=== PATIENT | female | born 1965 | race Caucasian/White ===

== ENCOUNTER 2018-09-03 19:13 | Emergency (ER) | payer OTHER ==
--- OUTSIDE RECORDS SUMMARY | 2018-09-03 19:23 | XMS REPORT | Continuity of Care Document ---
:1965 External Reference #:[id number] Author Name Jackeline Smith O.D. Address [address] [place] [address] Care Team Providers Name Role Phone Stalin Mark M.D. Primary Care Physician Unavailable Payers Type Date Identification Numbers Payment Provider Subscriber Policy Number: [id number] [employer] Radha Benitez PayID: [id number] [address] [place] [address] Advance Directives Description No Information Available Problems Date Description Provider Status Onset: 08/21/2018 Hypermetropia Jackeline Smith O.D. Active Onset: 08/21/2018 Presbyopia Jackeline Smith O.D. Active Family History Date Family Member(s) Problem(s) Comments Father No Current Problems Mother Cataract Social History Type Date Description Comments Sex Unknown Marital Status Single Occupation Tailor Work Status Full-Time Employment ETOH Use Occasionally consumes alcohol Tobacco Use Start: Unknown Patient has never smoked Smoking Status Reviewed: 08/21/18 Patient has never smoked Allergies, Adverse Reactions, Alerts Date Description Reaction Status Severity Comments 08/21/2018 Penicillin Active 08/21/2018 "Anesthesia" Active Medications Medication Date Status Form Strength Qnty SIG Indications Ordering Provider Multi Vitamin Active Tablets Unknown Daily Immunizations Description No Information Available Vital Signs Description No Information Available Results Description No Information Available Procedures Date Code Description Status 08/21/2018 01917 New Patient Comprehensive Exam Completed 08/21/2018 102 Level 2 Fit RGP/Soft Toric/Bifocal/Monovision/Extended Completed Wear Encounters Description No Information Available Plan of Treatment Future Appointment(s):08/28/2018 8:15 am - Jackeline Smith O.D. at [facility]
--- OUTSIDE RECORDS SUMMARY | 2018-09-03 19:23 | XMS REPORT | Continuity of Care Document ---
:1965 External Reference #:[id number] Author Name Jackeline Smith O.D. Address [address] [place] [address] Care Team Providers Name Role Phone Stalin Mark M.D. Primary Care Physician Unavailable Payers Type Date Identification Numbers Payment Provider Subscriber Policy Number: [id number] [employer] Radha Benitez PayID: [id number] [address] [place] [address] Advance Directives Description No Information Available Problems [...] Available Procedures Date Code Description Status 08/21/2018 50343 New Patient Comprehensive Exam Completed 08/21/2018 102 Level 2 Fit RGP/Soft Toric/Bifocal/Monovision/Extended Completed Wear Encounters Description No Information Available Plan of Treatment 08/21/2018 - Jackeline Smith O.D.H52.03 Hypermetropia, bilateralComments:You have Hyperopia, or far sightedness, I have given you a prescription for glasses.Follow up:1 WEEK CL LIKUNH98.4 PresbyopiaComments:Smoking can increase the risk of developing or worsening any eye related disease, as well as affect your overall health. If you are a smoker, we strongly recommend that you quit.If you are not a smoker, we strongly recommend that you do not start. You have presbyopia. This is when the lens in your eye loses the ability to change focus, and happens as we age. A pair of reading glasses will help you see up close.
--- OUTSIDE RECORDS SUMMARY | 2018-09-03 19:23 | XMS REPORT | Continuity of Care Document ---
:1965 External Reference #:[id number] Author Name Jackeline Smith O.D. Address [address] [facility] [facility] [place] [address] Care Team Providers Name Role Phone Stalin Mark M.D. Primary Care Physician Unavailable Payers Type Date Identification Numbers Payment Provider Subscriber Policy Number: [id number] Smith Benitez PayID: [id number] [address] [place] [address] Advance Directives Description No Information Available Problems [...] Available Results Description No Information Available Procedures Description No Information Available Encounters Description No Information Available Plan of Treatment Future Appointment(s):08/28/2018 8:15 am - Jackeline Smith O.D. at [facility]08/21/2018 - Jackeline Smith O.D.H52.03 Hypermetropia, bilateralComments:You have Hyperopia, or far sightedness, I have given you a prescription for glasses.Follow up:1 WEEK CL GVHJAP77.4 PresbyopiaComments: Smoking can increase the risk of developing or worsening any eye related disease , as well as affect your overall health. [...]
[2018-09-03 19:31] VITALS: BP 138/76
--- NOTE | 2018-09-03 19:49 | UC ---
Complaint Female HPI - HPI Summary HPI Summary: 53 year old woman here with a complaint of dysuria. She also has urgency and frequency. It's been going on for about 3 days and is getting worse. She has been taking Azo which does help with the symptoms. She's got some lower anterior midline abdominal discomfort that comes and goes. No flank pain no fevers or chills. No abnormal vaginal discharge OR concern of STI. Bowels been normal. - History Of Current Complaint Chief Complaint: UCGU Stated Complaint: URINARY COMPLAINT Time Seen by Provider: 09/03/18 19:28 Hx Last Menstrual Period: 08/31/18 Pain Intensity: 8 - Allergies/Home Medications Allergies/Adverse Reactions: Allergies Allergy/AdvReac Type Severity Reaction Status Date / Time Penicillins Allergy See Comment Verified 09/03/18 19:25 PMH/Surg Hx/FS Hx/Imm Hx Previously Healthy: Yes - Surgical History Surgical History: Yes Surgery Procedure, Year, and Place: 1990,1993, x , [place]. 2013 CYSTOSCOPY WITH LITHOTRIPSY AND RIGHT STENT INSERTION, [facility] [place] - Family History Known Family History: Positive: Cardiac Disease - Social History Alcohol Use: Occasionally Substance Use Type: None Smoking Status (MU): Former Smoker When Did the Patient Quit Smoking/Using Tobacco: 1993 - ABOUT 20 YEARS AGO - Immunization History Most Recent Tetanus Shot: UTD Review of Systems Constitutional: Negative Skin: Negative Eyes: Negative ENT: Negative Respiratory: Negative Cardiovascular: Negative Gastrointestinal: Other - SEE HPI Genitourinary: Dysuria, Frequency, Urgency Motor: Negative Neurovascular: Negative Musculoskeletal: Negative Neurological: Negative Psychological: Negative Is Patient Immunocompromised?: No All Other Systems Reviewed And Are Negative: Yes Physical Exam Triage Information Reviewed: Yes Appearance: Well-Appearing, No Pain Distress, Well-Nourished Vital Signs: Initial Vital Signs Temp 99.2 F 09/03/18 19:27 Pulse 86 09/03/18 19:27 Resp 17 09/03/18 19:27 BP 138/76 09/03/18 19:27 Pulse Ox 100 09/03/18 19:27 Vital Signs Reviewed: Yes Eye Exam: Normal Eyes: Positive: Conjunctiva Clear Neck exam: Normal Neck: Positive: Supple Respiratory: Positive: No respiratory distress Abdomen Description: Positive: Nontender, No Organomegaly, Soft. Negative: CVA Tenderness (R), CVA Tenderness (L) Bowel Sounds: Positive: Present Musculoskeletal Exam: Normal Musculoskeletal: Positive: Strength Intact, ROM Intact Neurological Exam: Normal Neurological: Positive: Alert, Muscle Tone Normal Psychological Exam: Normal Psychological: Positive: Age Appropriate Behavior Skin Exam: Normal Complaint Female Dx - Differential Dx/Diagnosis Provider Diagnoses: UTI Discharge - Sign-Out/Discharge Documenting (check all that apply): Patient Departure All imaging exams completed and their final reports reviewed: No Studies - Discharge Plan Condition: Stable Disposition: HOME Prescriptions: Sulfamethox/Trimethoprim DS* [Bactrim DS 800/160 TAB*] 1 tab PO BID #14 tab Patient Education Materials: Urinary Tract Infection in Women (ED) Referrals: Stalin Mark MD [Primary Care Provider] - Additional Instructions: FOLLOW UP WITH YOUR DOCTOR IF NOT COMPLETELY IMPROVED. GET RECHECKED FOR ANY WORSENING OF YOUR CONDITION OR QUESTIONS OR CONCERNS. - Billing Disposition and Condition Condition: STABLE Disposition: Home
== END 2018-09-03 19:54 | disposition home or self-care (01) ==
LOC: UCCORT 19:13
DX: N39.0 Urinary tract infection, site not specified (principal); Z88.0 Allergy status to penicillin; Z87.891 Personal history of nicotine dependence
CPT/HCPCS: 81003; 87077; 87086; 87186; 99212; G0463

== ENCOUNTER 2019-09-26 10:34 | Inpatient (IN) | payer BC, OTHER ==
--- NOTE | 2019-09-16 13:14 | HP ---
HISTORY AND PHYSICAL: DATE OF SURGERY: 09/26/19 DATE OF OFFICE VISIT: 09/15/19 SURGEON: Chey Tompkins MD.* (DICTATED BY SURAJ DELGADO) PROCEDURE: Revision left total knee arthroplasty, patellar component. CHIEF COMPLAINT: Left knee pain. HISTORY OF PRESENT ILLNESS: Ms. Benitez is a 54-year-old female who underwent a left total knee arthroplasty. She continues to have pain and has elected to proceed with a revision of the left total knee arthroplasty. PAST MEDICAL HISTORY: Denies. PAST SURGICAL HISTORY: 1. Bilateral total knee arthroscopy. 2. Kidney stone removal. 3. x2. 4. Tonsillectomy. CURRENT MEDICATIONS: None. ALLERGIES: To PENICILLIN. FAMILY HISTORY: Coronary artery disease. SOCIAL HISTORY: She is a 54-year-old female. She does not smoke or use drugs, use occasional alcohol. REVIEW OF SYSTEMS: A complete 14-point review of systems reviewed with the patient was all negative and noncontributory. She denies history of DVT, PE, hepatitis, HIV or anesthesia problems. PHYSICAL EXAMINATION GENERAL: She is well developed, well nourished, in no acute distress. VITAL SIGNS: She stands 63 inches tall, weighs 150 pounds. Her blood pressure is 118/80, her heart rate is 100. HEENT: Normocephalic, atraumatic. NECK: Supple. No palpable lymph nodes. PULMONARY: The lungs are clear to auscultation bilaterally. CARDIO: Regular rate and rhythm. Strong S1, S2. ABDOMEN: Soft, nontender, nondistended. NEUROLOGICAL: She is alert and oriented x3. MUSCULOSKELETAL: Left lower extremity skin is intact. There are no open wounds or abrasions. There is a healed midline incision. There is a mild effusion of the left knee. Range of motion is 10 to 125 degrees of flexion. She has a 10-degree lag, but can passively extend to 0 degrees. She has a 2+ dorsalis pedis pulse. She is able to dorsiflex and plantarflex. Intact sensation. ASSESSMENT AND PLAN: Ms. Benitez is a 54-year-old female with complaints of left knee pain. She has elected to proceed with revision of a left total knee arthroplasty, patellar component. The surgery is scheduled for 09/26/[address] Tompkins after I discussed the risks and benefits of the surgery at today's visit and all of her questions were answered. She will follow up with Dr. Tompkins 2 weeks after the surgery. SURAJ DELGADO [id number]/CPS #: [id number] MTDD
[~2019-09-26 10:34] MED LIST: Buffered Lidocaine 1% SYRIN* 1 ML/SYRINGE INTRADERM ONE; Famotidine IV* 10 MG/ML 2 ML (20 mg) IV ONE; Scopolamine 1.5 mg* PATCH TRANSDERM ONE; Tranexamic Acid 1,000 MG in NS 0.9% 50 ML* (outpatient use) IV SCH
--- OUTSIDE RECORDS SUMMARY | 2019-09-26 13:02 | XMS REPORT | Continuity of Care Document ---
:1965 External Reference #:[id number] Author Name Sharlene Mclaughlin MD, PHD (transmitted by agent of provider Melissa Merino) Address [address] [facility], [address] [place] [address] Care Team Providers Name Role Phone Sharlene Mclaughlin MD, PHD - Family Care Team Information Dependency Counselor [phone] Medicine Problems Active Problems Provider Date Localized, primary osteoarthritis Veronica Rivas PA Onset: 01/01/2018 Female climacteric state Sharlene Mclaughlin MD, PHD Onset: 12/09/2018 Rheumatoid arthritis Sharlene Mclaughlin MD, PHD Onset: 09/05/2019 Social History Type Date Description Comments Sex Unknown Tobacco Use Start: Unknown Never Smoked Cigarettes ETOH Use Currently consumes alcohol socially ETOH Use Drinks 6 Alcoholic Beverages Per Week Tobacco Use Start: Unknown Patient has never smoked Smoking Status Reviewed: 09/05/19 Patient has never smoked Allergies, Adverse Reactions, Alerts Active Allergies Reaction Severity Comments Date Anesthesia vomiting vomiting 10/27/2016 Penicillin Nausea 12/09/2018 Medications Active Medications SIG Qnty Indications Ordering Provider Date Multi Adult Gummies 2 by mouth every Unknown day Chewtabs History Medications Methotrexate take 5 tablets by 30tabs M06.9 Sharlene Mclaughlin, 09/05/2019 - 2.5mg mouth weekly as MD, PHD 09/05/2019 Tablets directed Medications Administered in Office Medication SIG Qnty Indications Ordering Provider Date Methylprednisolone acetate Jaimee Ellis, 06/29/2017 (Depomedrol) 80mg injection RPAC Injection Methylprednisolone acetate Jaimee Ellis, 10/27/2016 (Depomedrol) 80mg injection RPAC Injection Immunizations CPT Code Status Date Vaccine Lot # [id number] Refused 09/05/2019 Influenza Virus Vaccine, Quadrivalent, 36 Mos+, .5ML Vital Signs Date Vital Result Comment 09/05/2019 9:08am BP Systolic 117 mmHg BP Diastolic 75 mmHg Body Temperature 98.2 F Heart Rate 76 /min Respiratory Rate 18 /min Height 63 inches 5'3" Weight 150.00 lb BMI (Body Mass Index) 26.6 kg/m2 BSA (Body Surface Area) 1.71 m2 [place] body weight in kilograms 52 kg O2 % BldC Oximetry 98 % 12/09/2018 10:09am BP Systolic 97 mmHg BP Diastolic 64 mmHg Body Temperature 98.4 F Heart Rate 83 /min Respiratory Rate 16 /min Height 63 inches 5'3" Weight 164.00 lb BMI (Body Mass Index) 29.0 kg/m2 BSA (Body Surface Area) 1.78 m2 [place] body weight in kilograms 52 kg O2 % BldC Oximetry 98 % Results Description No Information Available Procedures Description No Information Available Medical Devices Description No Information Available Encounters Type Date Location Provider Dx Diagnosis Office Visit 09/05/2019 Family Medicine Sharlene Mclaughlin, Z01.818 Encounter for other 9:00a Jason Hua MD, PHD preprocedural examination M17.0 Bilateral primary osteoarthritis of knee M25.562 Pain in left knee M19.90 Unspecified osteoarthritis, unspecified site N95.1 Menopausal and female climacteric states M06.9 Rheumatoid arthritis, unspecified Assessments Date Code Description Provider 09/05/2019 Z01.818 Encounter for other preprocedural Sharlene Mclaughlin MD, PHD examination 09/05/2019 M17.0 Bilateral primary osteoarthritis of knee Sharlene Mclaughlin MD, PHD 09/05/2019 M25.562 Pain in left knee Sharlene Mclaughlin MD, PHD 09/05/2019 M19.90 Unspecified osteoarthritis, unspecified Sharlene Mclaughlin MD, PHD site 09/05/2019 N95.1 Menopausal and female climacteric states Sharlene Mclaughlin MD, PHD 09/05/2019 M06.9 Rheumatoid arthritis, unspecified Sharlene Mclaughlin MD, PHD Plan of Treatment 09/05/2019 - Sharlene Mclaughlin MD, PHDZ01.818 Encounter for other preprocedural examinationNew Labs:Protime, Ordered: 09/05/19M17.0 Bilateral primary osteoarthritis of kneeNew Labs:Vitamin D,25-Hydroxy, Ordered: 09/05/19CBC W/ Automated Diff, Ordered: 09/05/19Comprehensive Metabolic Panel, Ordered: M25.562 Pain in left kneeM19.90 Unspecified osteoarthritis, unspecified siteNew Labs:Lyme Igm (Reflex Western Blot), Ordered: 09/05/19N95.1 Menopausal and female climacteric statesComments:Discussed Gabapentin at bedtime for sleep and sweats. Anti-depressants are an option if needed. Would avoid any hormone replacement at this time due to risk of blood clot.M06.9 Rheumatoid arthritis, unspecifiedNew Medication:Methotrexate 2.5 mg - take 5 tablets by mouth weekly as directedNew Labs:CCP Igg/Iga Antibodies, Ordered: 09/05/19Rheumatoid Factor Screen, Ordered: 09/05/19Sedimentation Rate, Ordered: 09/05/19C-Reactive Protein ,Quant, Ordered: 09/05/19Comments:Rheumatoid arthritis is a destructive auto- immune attack on your joints that can flare and make things worse after exercise , injury, or surgery if we don't have it under control. Doing blood work to check before starting the methotrexate. Functional Status Functional Condition Comment Date Status Independent with all ADL's Active Mental Status Description No Information Available Referrals Description No Information Available
--- OUTSIDE RECORDS SUMMARY | 2019-09-26 13:02 | XMS REPORT | Continuity of Care Document ---
:1965 External Reference #:[id number] Author Name Chey Tompkins M.D. (transmitted by agent of provider Jocelin Lambert) Address [address] [place] [address] [place] [address] Care Team Providers Name Role Phone Megan Bae MD - Family Care Team Information Marketing Database Analyst [phone] Medicine Sharlene Mclaughlin M.D. - Family Care Team Information Marketing Database Analyst Medicine Problems Active Problems Provider Date Arthroplasty of knee Chey Tompkins M.D. Onset: 07/09/2019 Social History Type Date Description Comments Sex Unknown ETOH Use Occasionally consumes alcohol Tobacco Use Start: Unknown Light tobacco smoker (10 or fewer cigarettes/day) Smoking Status Reviewed: 08/06/19 Light tobacco smoker (10 or fewer cigarettes/day) Exercise Type/Frequency Exercises sporadically Allergies, Adverse Reactions, Alerts Active Allergies Reaction Severity Comments Date Anesthesia 11/29/2018 Penicillin 11/29/2018 Medications Active Medications SIG Qnty Indications Ordering Provider Date [place] Unknown Ibuprofen Unknown Medications Administered in Office Medication SIG Qnty Indications Ordering Provider Date Depomedrol 40MG Chey Tompkins M.D. 07/16/2019 Injection Immunizations Description No Information Available Vital Signs Date Vital Result Comment 08/06/2019 8:28am Height 63.75 inches 5'3.75" Weight 150.00 lb Heart Rate 100 /min BP Systolic 118 mmHg BP Diastolic 80 mmHg Body Temperature 98.7 F Pain Level 6 BMI (Body Mass Index) 25.9 kg/m2 07/16/2019 11:35am Height 63.75 inches 5'3.75" Weight 150.00 lb BP Systolic 120 mmHg BP Diastolic 73 mmHg Respiratory Rate 14 /min Body Temperature 98.1 F Pain Level 3 BMI (Body Mass Index) 25.9 kg/m2 Results Test Date Facility Test Result H/L Range Note Xray 07/16/2019 [facility] Inj/Aspir Major JT Or Bursa W/ <pending> US Procedures Date Code Description Status 07/16/2019 32827 Inj/Aspir Major JT Or Bursa W/ US Completed 03/13/2018 [id number] Mammogram Completed 06/13/2016 83731103 Colonoscopy Completed Medical Devices Description No Information Available Encounters Type Date Location Provider Dx Diagnosis Office Visit 07/09/2019 [facility] Chey Tompkins, M25.562 Pain in left knee 9:[facility] M25.561 Pain in right knee M25.462 Effusion, left knee M25.552 Pain in left hip Z96.651 Presence of right artificial knee joint Z96.652 Presence of left artificial knee joint M25.461 Effusion, right knee Assessments Date Code Description Provider 08/06/2019 M25.562 Pain in left knee Cheypratibha Tompkins M.D. 08/06/2019 M25.462 Effusion, left knee Chey Tompkins M.D. 08/06/2019 Z96.652 Presence of left artificial knee joint Chey Tompkins M.D. 08/06/2019 R53.1 Weakness Chey Tompkins M.D. 07/16/2019 M25.562 Pain in left knee Chey Tompkins M.D. 07/16/2019 M25.561 Pain in right knee Chey Tompkins M.D. 07/16/2019 M25.462 Effusion, left knee Chey Tompkins M.D. 07/16/2019 M25.552 Pain in left hip Chey Tompkins M.D. 07/16/2019 Z96.651 Presence of right artificial knee joint Chey Tompkins M.D. 07/16/2019 Z96.652 Presence of left artificial knee joint Chey Tompkins M.D. 07/16/2019 M25.461 Effusion, right knee Chey Tompkins M.D. 07/16/2019 M16.12 Unilateral primary osteoarthritis, left hip Chey Tompkins M.D. 07/09/2019 M25.562 Pain in left knee Chey Tompkins M.D. 07/09/2019 M25.561 Pain in right knee Chey Tompkins M.D. 07/09/2019 M25.462 Effusion, left knee Chey Tompkins M.D. 07/09/2019 M25.552 Pain in left hip Chey Tompkins M.D. 07/09/2019 Z96.651 Presence of right artificial knee joint Chey Tompkins M.D. 07/09/2019 Z96.652 Presence of left artificial knee joint Chey Tompkins M.D. 07/09/2019 M25.461 Effusion, right knee Chey Tompkins M.D. Plan of Treatment Future Appointment(s):09/15/2019 1:00 [facility] - Chey Tompkins M.D.M25.562 Pain in left kneeFollow up:Follow up: 7-10 days before kxxujntC09.462 Effusion, left kneeZ96.652 Presence of left artificial knee rjbjtO76.1 Weakness Functional Status Description No Information Available Mental Status Description No Information Available Referrals Description No Information Available
--- OUTSIDE RECORDS SUMMARY | 2019-09-26 13:02 | XMS REPORT | Continuity of Care Document ---
:1965 External Reference #:[id number] Author Name Sharlene Mclaughlin MD, PHD Address [address] [facility] [address] [place] [address] Care Team Providers Name Role Phone Sharlene Mclaughlin MD, PHD - Family Care Team Information Body And Frame Man Medicine Problems Active Problems Provider Date Localized, [...] Mclaughlin, 09/05/2019 - 2.5mg mouth weekly as , PHD 09/05/2019 Tablets directed Medications Administered in Office Medication SIG Qnty Indications Ordering Provider Date Methylprednisolone acetate Jaimee Ellis, 06/29/2017 (Depomedrol) 80mg injection RPAC Injection Methylprednisolone acetate Jaimee Ellis, 10/27/2016 (Depomedrol) 80mg injection RPAC Injection Immunizations CPT Code Status Date Vaccine Lot # [id number] Refused 09/05/2019 Influenza Virus Vaccine, Quadrivalent, 36 Mos+, .5ML Vital Signs Date Vital Result Comment 09/05/2019 9:08am BP Systolic 117 mmHg BP Diastolic 75 mmHg Body Temperature 98.2 F Heart Rate 76 /min Respiratory Rate 18 /min Height 63 inches 5'3" Weight 150.00 lb BMI (Body Mass Index) 26.6 kg/m2 BSA (Body Surface Area) 1.71 m2 Goodman body weight in kilograms 52 kg O2 % BldC Oximetry 98 % 12/09/2018 10:09am BP Systolic 97 mmHg BP Diastolic 64 mmHg Body Temperature 98.4 F Heart Rate 83 /min Respiratory Rate 16 /min Height 63 inches 5'3" Weight 164.00 lb BMI (Body Mass Index) 29.0 kg/m2 BSA (Body Surface Area) 1.78 m2 Goodman body weight in kilograms 52 kg O2 [...]
--- OUTSIDE RECORDS SUMMARY | 2019-09-26 13:02 | XMS REPORT | Continuity of Care Document ---
:1965 External Reference #:[id number] Author Name Chey Tompkins M.D. (transmitted by agent of provider Jocelin Lambert) Address [address] [place] [address] [place] [address] Care Team Providers Name Role Phone Megan Bae MD - Family Care Team Information Stitch Separator [phone] Medicine Sharlene Mclaughlin M.D. - Family Care Team Information Stitch Separator [phone] Medicine Problems Active Problems Provider Date Arthroplasty of knee Chey Tompkins M.D. Onset: 07/09/2019 Social History Type Date Description Comments Sex Unknown ETOH Use Occasionally consumes alcohol Tobacco Use Start: Unknown Light tobacco smoker (10 or fewer cigarettes/day) Smoking Status Reviewed: 09/15/19 Light tobacco smoker (10 or fewer cigarettes/day) Exercise Type/Frequency Exercises sporadically Allergies, Adverse Reactions, Alerts Active Allergies Reaction Severity Comments Date Anesthesia 11/29/2018 Penicillin 11/29/2018 Medications Active Medications SIG Qnty Indications Ordering Provider Date [place] Unknown Ibuprofen Unknown Medications Administered in Office Medication SIG Qnty Indications Ordering Provider Date Depomedrol 40MG Chey Tompkins M.D. 07/16/2019 Injection Immunizations Description No Information Available Vital Signs Date Vital Result Comment 09/15/2019 1:14pm Height 63.75 inches 5'3.75" Weight 154.00 lb Heart Rate 90 /min BP Systolic 126 mmHg BP Diastolic 68 mmHg Body Temperature 98.8 F Pain Level 5 BMI (Body Mass Index) 26.6 kg/m2 08/06/2019 8:28am Height 63.75 inches 5'3.75" Weight 150.00 lb Heart Rate 100 /min BP Systolic 118 mmHg BP Diastolic 80 mmHg Body Temperature 98.7 F Pain Level 6 BMI (Body Mass Index) 25.9 kg/m2 Results Test Date Facility Test Result H/L Range Note Xray 07/16/2019 [employer] [facility] In House Inj/Aspir Major JT Or Bursa W/ <pending> US Procedures Date Code Description Status 07/16/2019 45130 Inj/Aspir Major JT Or Bursa W/ US Completed 03/13/2018 [id number] Mammogram Completed 06/13/2016 [id number] Colonoscopy Completed Medical Devices Description No Information Available Encounters Type Date Location Provider Dx Diagnosis Office Visit 08/06/2019 [facility] Chey Tompkins, M25.562 Pain in left knee 8:15a at [place] M.D. M25.462 Effusion, left knee Z96.652 Presence of left artificial knee joint R53.1 Weakness Office Visit 07/09/2019 9:00a [facility] Chey Tompkins M25.562 Pain in left at [place] M.D. knee M25.561 Pain in right knee M25.462 Effusion, left knee M25.552 Pain in left hip Z96.651 Presence of right artificial knee joint Z96.652 Presence of left artificial knee joint M25.461 Effusion, right knee Assessments Date Code Description Provider 09/15/2019 Z96.652 Presence of left artificial knee joint Chey Tompkins M.D. 09/15/2019 M25.462 Effusion, left knee Chey Tompkins M.D. 09/15/2019 M25.562 Pain in left knee Chey Tompkins M.D. 08/06/2019 M25.562 Pain in left knee Chey Tompkins M.D. 08/06/2019 M25.462 Effusion, left knee Chey Tompkins M.D. 08/06/2019 Z96.652 Presence of left artificial knee joint Chey Tompkins M.D. 08/06/2019 R53.1 Weakness Chey Tompkins M.D. 07/16/2019 M25.562 Pain in left knee Chey Tompkins M.D. 07/16/2019 M25.561 Pain in right knee Chey Tompkins M.D. 07/16/2019 M25.462 Effusion, left knee Chey Turner, M.DBerlin 07/16/2019 M25.552 Pain in left hip Chey Turner, M.DBerlin 07/16/2019 Z96.651 Presence of right artificial knee joint Chey Turner M.DBerlin 07/16/2019 Z96.652 Presence of left artificial knee joint Cheybryan Tompkins M.DBerlin 07/16/2019 M25.461 Effusion, right knee CheyLauren CarpenterDBerlin 07/16/2019 M16.12 Unilateral primary osteoarthritis, left hip Cheybryan Tompkins M.DBerlin 07/09/2019 M25.562 Pain in left knee Chey Turner M.DBerlin 07/09/2019 M25.561 Pain in right knee Chey Turner, M.DBerlin 07/09/2019 M25.462 Effusion, left knee Lauren VanceDBerlin 07/09/2019 M25.552 Pain in left hip Cheybryan Tompkins M.DBerlin 07/09/2019 Z96.651 Presence of right artificial knee joint Chey Tompkins M.DBerlin 07/09/2019 Z96.652 Presence of left artificial knee joint Chey Tompkins M.D. 07/09/2019 M25.461 Effusion, right knee Chey Tompkins M.D. Plan of Treatment Future Appointment(s):10/08/2019 9:45 am - Chey Tompkins M.D. at [facility] [place]/26/2019 12:30 pm - Chey Tompkins M.D. at [facility] at [place]/15/2019 - Chey Tompkins M.D.Z96.652 Presence of left artificial knee jointFollow up:Follow up: 2 weeks after cbotpvvL34.462 Effusion, left kneeM25.562 Pain in left knee Functional Status Description No Information Available Mental Status Description No Information Available Referrals Description No Information Available
--- OUTSIDE RECORDS SUMMARY | 2019-09-26 13:02 | XMS REPORT | Continuity of Care Document ---
:1965 External Reference #:[id number] Author Name Cehy Tompkins M.D. (transmitted by agent of provider Rica Sánchez) Address [address] [place] [address] Care Team Providers Name Role Phone Megan Bae MD - Family Care Team Information Channel Development Manager [phone] Medicine Sharlene Mclaughlin M.D. - Family Care Team Information Channel Development Manager [phone] Medicine Problems Active Problems Provider Date Arthroplasty [...] Medications SIG Qnty Indications Ordering Provider Date [place] Unknown Ibuprofen Unknown Medications Administered in Office [...] Test Result H/L Range Note Xray 07/16/2019 [employer] In House Inj/Aspir Major JT Or Bursa W/ <pending> US Procedures Date Code Description Status 07/16/2019 58364 Inj/Aspir Major JT Or Bursa W/ US Completed 03/13/2018 [id number] Mammogram Completed 06/13/2016 [id number] Colonoscopy Completed Medical Devices Description No Information Available Encounters Type Date Location Provider Dx Diagnosis Office Visit 08/06/2019 [facility] Chey Tompkins, M25.562 Pain in left knee 8:15a at [place] M.D. M25.462 Effusion, left knee Z96.652 Presence of left artificial knee joint R53.1 Weakness Office Visit 07/09/2019 9:00a [facility] Chey Tompkins M25.562 Pain in left at [place] M.D. knee M25.561 Pain in right knee M25.462 Effusion, left knee M25.552 Pain in left hip Z96.651 Presence of right artificial knee joint Z96.652 Presence of left artificial knee joint M25.461 Effusion, right knee Assessments Date Code Description Provider 08/06/2019 M25.562 Pain in left knee Chey [...] M.D. 07/09/2019 M25.562 Pain in left knee CheyGabriela Carpenter.Ana 07/09/2019 M25.561 Pain in right knee Gabriela Vance.DBerlin 07/09/2019 M25.462 Effusion, left knee Chey Tompkins M.D. 07/09/2019 M25.552 Pain in left hip Gabriela Vance.Ana 07/09/2019 Z96.651 Presence of right artificial knee joint Chey Tompkins M.D. 07/09/2019 Z96.652 Presence of left artificial knee joint Chey Tompkins M.D. 07/09/2019 M25.461 Effusion, right knee Chey Tompkins M.D. Plan of Treatment Future Appointment(s):09/26/2019 12:30 pm - Chey Tompkins M.D. at [facility] at [place]/15/2019 1:00 pm - Chey Tompkins M.D. at [facility] at [place]1108/06/2019 - Chey Tompkins M.D.M25.562 Pain in left kneeFollow up:Follow up: 7-10 days before zujzoueV38.462 Effusion, left kneeZ96.652 Presence of left artificial knee wqdnpH95.1 Weakness Functional Status Description No Information Available Mental Status Description No Information Available Referrals Description No Information Available
[2019-09-26] MEDS ORDERED: Famotidine IV* 10 MG/ML 2 ML (20 mg) ONE (13:21)
[2019-09-26] MEDS ORDERED: Scopolamine 1.5 mg* PATCH ONE (13:21)
[2019-09-26] MEDS ORDERED: Clindamycin 900 MG/D5W BAG(*) 900 MG/50 ML BAG IVPB ONE (13:21)
[2019-09-26] MEDS ORDERED: Lidocaine 1% MPF ** 5 ML VIAL ONE (13:58)
[2019-09-26] MEDS ORDERED: ROPIVACAINE 5 MG/ML 30 ML BTL (0.5%) ONE (13:58)
[2019-09-26] MEDS: Lactated Ringers 1000 ML Bag* 1,000 ML IV SCH ×2 (14:03→19:49)
[2019-09-26] MEDS ORDERED: Midazolam* 1 MG/ML 5 ML VIAL (5 MG) ONE (14:14)
[2019-09-26] MEDS ORDERED: Midazolam* 1 MG/ML 2 ML VIAL (2 MG) ONE ×2 (15:12→16:13)
[2019-09-26] MEDS ORDERED: KETAMINE HCL* 50 MG/ML 10 ML VIAL ONE (15:12)
[2019-09-26] MEDS ORDERED: DiMENhydriNATE IV* 50 MG/ML VIAL ONE (15:29)
[2019-09-26] MEDS ORDERED: Glycopyrrolate IV* 0.2 MG/ML 1 ML VIAL ONE (15:29)
[2019-09-26] MEDS ORDERED: Ondansetron INJ* 2 MG/ML VIAL ONE (15:29)
[2019-09-26] MEDS ORDERED: Ketorolac INJ* 30 MG/ML 1 ML VIAL ONE (15:29)
[2019-09-26] MEDS ORDERED: Dexamethasone IV* 4 MG/ML 1 ML (4 MG) ONE (15:29)
[2019-09-26] MEDS ORDERED: Propofol* 10 MG/ML 20 ML BTL ONE (15:29)
[2019-09-26] MEDS ORDERED: HYDROmorphone INJ1* 1 MG/ML SYRINGE ONE (16:12)
[2019-09-26] MEDS ORDERED: Acetaminophen IV 1GM/100ML * 1,000 MG/100 ML VIAL IVPB ONE (16:43)
[2019-09-26] MEDS ORDERED: Naloxone* 0.4 MG/ML 1 ML VIAL IV PRN (16:43)
[2019-09-26] MEDS ORDERED: HYDROmorphone INJ1* 1 MG/ML SYRINGE IV PRN (16:43)
[2019-09-26] MEDS ORDERED: DiMENhydriNATE IV* 50 MG/ML VIAL IV PUSH PRN (16:43)
[2019-09-26] MEDS ORDERED: diPHENhydraMINE PO* 25 MG PO PRN (17:01)
[2019-09-26] MEDS ORDERED: Morphine INJ* 2 MG/ML 1 ML SYRINGE (TWO MG - NEW SYRINGE VERSION) IV PRN (17:01)
[2019-09-26] MEDS ORDERED: Ondansetron ODT TAB* 4 MG PO PRN (17:01)
[2019-09-26] MEDS ORDERED: diPHENhydraMINE IV* 50 MG/ML 1 ml VIAL (BENADRYL) IV PRN (17:01)
[2019-09-26] MEDS ORDERED: Ondansetron TAB* 4 MG PO PRN (17:01)
[2019-09-26] MEDS ORDERED: oxyCODONE TAB* 5 MG TAB PO PRN (17:01)
[2019-09-26] MEDS ORDERED: oxyCODONE/Acetamin 5/325 MG* TAB PO PRN (17:01)
[2019-09-26] MEDS ORDERED: Ondansetron INJ* 2 MG/ML VIAL IV PRN (17:01)
[2019-09-26] MEDS ORDERED: Cyclobenzaprine TAB* 10 MG PO PRN (17:01)
[2019-09-26] MEDS ORDERED: Magnesium Hydroxide LIQ* 30 ML UDC PO PRN (17:01)
[2019-09-26] MEDS ORDERED: Polyethylene Glycol 3350* 17 GM PACKET PO PRN (17:01)
[2019-09-26] MEDS ORDERED: Acetaminophen IV 1GM/100ML * 100 ML ONE (17:15)
[2019-09-26] MEDS ORDERED: traMADol TAB* 50 MG ONE (17:48)
[2019-09-26] MEDS: traMADol TAB* 50 MG PO PRN ×2 (17:50→23:50)
[2019-09-26] MEDS ORDERED: Lactated Ringers 1000 ML Bag* 1,000 ML IV SCH (18:00)
[2019-09-26] MEDS: Acetaminophen TAB* 325 MG PO SCH ×2 (22:26→22:27)
[2019-09-26] MEDS: Docusate CAP* 100 MG PO SCH (22:27)
[2019-09-26] MEDS: Magnesium Hydroxide LIQ* 30 ML UDC PO SCH (22:27)
[2019-09-26] MEDS: Clindamycin 600 MG/D5W BAG(*) 600 MG/50 ML BAG IV SCH (23:29)
[2019-09-27] MEDS: Acetaminophen TAB* 325 MG PO SCH ×3 (01:15→12:33)
--- NOTE | 2019-09-27 04:32 | OP ---
OPERATIVE NOTE: DATE OF OPERATION: 09/26/19 DATE OF : 63 ATTENDING SURGEON: Chey Tompkins MD. PEDIATRIC ORTHODONTIST: SURAJ Woo Ms. Barrientos did help throughout the procedure with preparation of the leg, wound retraction, manipulation of the knee, and wound closure. ANESTHESIOLOGIST: Dr. Jenkins. ANESTHESIA TYPE: Spinal. 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 OPERATIVE PROCEDURE: Revision left total knee arthroplasty, patellar resurfacing, wide scar excision. TOURNIQUET TIME: 29 minutes. ESTIMATED BLOOD LOSS: 150 cc. COMPLICATIONS: None. SPECIMEN: Multiple culture swabs were sent for aerobics, anaerobic, mycobacterial and fungal cultures and sensitivities. BRIEF HISTORY/INDICATION: Ms. Benitez is a 54-year-old female who had a left total total knee arthroplasty at an outside facility in December 2018. Postoperatively, chronic pain and stiffness in the knee. Her main complaints were in the peripatellar region. She had significant patellofemoral crepitus and pain. Her patella has been unresurfaced and I did offer her patella resurfacing with revision and inspection of her implant. Due to continued pain and decreased quality of life, she wished to proceed. Informed consent was obtained from the patient. She understood the risks of surgery included, but were not limited to bleeding, infection, damage to nearby structures, continued pain, need for further surgery, intraoperative fracture, nerve palsy, hardware failure or loosening, continued stiffness, continued pain, anesthesia complications, stroke, heart attack, blood clot and . She wished to proceed. INTRAOPERATIVE FINDINGS: Intraoperatively there was no obvious infection. Extensive scar formation all along her capsule in both gutters and especially along the extensor mechanism and patellar tendons. She had advanced arthritis of the patella with loss of cartilage and exposure of chondral bone. Her femoral and tibial implants had no visible sign of loosening. Preoperative range of motion was 5 to 95 degrees of flexion. This has improved from 5 to 120 degrees of flexion at the end of case. HARDWARE: Gutiérrez and Nephew America II resurfacing patellar component 32 mm with 7.5 thickness. DESCRIPTION OF PROCEDURE: Ms. Benitez was identified in the preanesthesia unit. Her left lower extremity was marked as the correct operative side. Informed consent was signed and placed in the chart. The patient was taken to the operating room and placed under anesthesia. A Han catheter was placed. Tourniquet was placed on the left thigh. The left lower extremity was prepped and draped in the usual sterile fashion. Preop time out was made to correctly identify the patient's side and site. Appropriate perioperative antibiotics were given within one hour of incision. The patient's prior midline incision was opened using a 10-blade. A new 10- blade was used to make standard medial parapatellar arthrotomy. There was a small amount of clear yellow joint fluid, which was collected on culture swab and sent to microbiologies for cultures and sensitivities. There was no obvious infection. There was extensive scar tissue in the gutters in the suprapatellar pouch and especially along the extensor mechanism. A wide scar excision was performed using electrocautery. The patellar tendon was elevated off the anterior tibia to help improve patellar tracking. The patella was noted to have severe arthritis, with exposure of chondral bone. The scar was carefully removed from around the suprapatellar pouch, medial and lateral gutters, and along the patellar tendon. The patella was carefully everted; 8 mm of patellar cartilage and bone was carefully removed using an oscillating saw. The patella was sized to a size 32. A 32 drill guide was used to drill the 3 PEG holes. A trial 32 patella was placed and the knee was taken through a range of motion. Patellar tracking was satisfactory. Final implant chosen was a Gutiérrez and Nephew 32 with 7.5 thickness, America II component cemented into place with 1 package of Simplex bone cement. The bone cement was carefully prepared and the final component was cemented without difficulty. Once the cement was fully cured, the knee was copiously irrigated with sterile saline. The tourniquet was turned down at 29 minutes. The knee was taken through a range of motion. There was satisfactory patellofemoral tracking. The patient had improved range of motion from preop 95 degrees to 120 degrees of flexion. The knee was copiously irrigated with sterile saline. Electrocautery was used to obtain meticulous hemostasis. The extensor mechanism was closed using #1 Vicryl interrupted. The rest of the incision was closed in a layered fashion using 0 and 2-0 Vicryl. Skin was closed using running 3-0 nylon suture. Sterile Xeroform, 4x4s, and Webril were used to cover the incision. The patient's anesthesia was reversed without difficulty. She was taken to the PACU in stable condition. Intended weightbearing will be weightbearing as tolerated. Intended DVT prophylaxis will be Eliquis. [id number]/[facility] #: [id number] MTDD
[2019-09-27 07:07] LABS: Hematocrit 32 % (35-47); Hemoglobin 11.2 g/dL (12.0-16.0); Mean Platelet Volume 7.6 fL (7.4-10.4); Platelet Count 300 10^3/uL (150-450)
[2019-09-27] MEDS: Magnesium Hydroxide LIQ* 30 ML UDC PO SCH (07:12)
[2019-09-27 07:18] LABS: BUN/Creatinine Ratio 20.8 (8-20); Calcium 8.8 mg/dL (8.6-10.3); EGFR African American 144.9 (>60); EGFR Non-African American 119.8 (>60)
[2019-09-27] MEDS: Clindamycin 600 MG/D5W BAG(*) 600 MG/50 ML BAG IV SCH ×2 (07:30→14:26)
[2019-09-27] MEDS: traMADol TAB* 50 MG PO PRN ×2 (07:33→13:37)
[2019-09-27] MEDS: Docusate CAP* 100 MG PO SCH (07:34)
--- NOTE | 2019-09-27 07:36 | PN ---
Progress Note - Progress Note Date of Service: 09/27/19 SOAP: Subjective: resting comfortably with no significant complaints; denies SOB/chest pain Objective: Vital Signs Temp Pulse Resp BP Pulse Ox 98.5 F 83 18 99/53 98 09/27/19 07:24 09/27/19 07:24 09/27/19 07:33 09/27/19 07:24 09/27/19 07:24 Laboratory Last Values Hgb 11.2 g/dL (12.0-16.0) L 09/27/19 06:12 Hct 32 % (35-47) L 09/27/19 06:12 Plt Count 300 10^3/uL (150-450) 09/27/19 06:12 MPV 7.6 fL (7.4-10.4) 09/27/19 06:12 Sodium 136 mmol/L (135-145) 09/27/19 06:12 Potassium 4.0 mmol/L (3.5-5.0) 09/27/19 06:12 Chloride 104 mmol/L (101-111) 09/27/19 06:12 Carbon Dioxide 27 mmol/L (22-32) 09/27/19 06:12 Anion Gap 5 mmol/L (2-11) 09/27/19 06:12 BUN 11 mg/dL (6-24) 09/27/19 06:12 Creatinine 0.53 mg/dL (0.51-0.95) 09/27/19 06:12 Est GFR ( Amer) 144.9 (>60) 09/27/19 06:12 Est GFR (Non-Af Amer) 119.8 (>60) 09/27/19 06:12 BUN/Creatinine Ratio 20.8 (8-20) H 09/27/19 06:12 Glucose 86 mg/dL (70-100) 09/27/19 06:12 Calcium 8.8 mg/dL (8.6-10.3) 09/27/19 06:12 dressing c/d/i PE: able t odorsi flex/plantar flex, 2+ DP pulse and intact sensation Assessment: s/p left TK revision of patellar component Plan: 1) PT/OT- WBAT 2) Eliquis for DVT prophylaxis 3) home today if PT goals met
--- NOTE | 2019-09-27 08:44 | DS ---
AMENDED REPORT NOW INCLUDES DESIGNATED COSIGNER DISCHARGE SUMMARY: DATE OF ADMISSION: 09/26/19 DATE OF DISCHARGE: 09/27/19 SURGEON: Chey Tompkins MD * (DICTATED BY SURAJ DELGADO) PRINCIPAL DIAGNOSIS: Painful left knee knee arthroplasty with patellar arthritis. DISCHARGE DIAGNOSIS: Painful left knee knee arthroplasty with patellar arthritis. DISCHARGE DISPOSITION: Discharged to home in stable condition. HISTORY OF PRESENT ILLNESS: Ms. Benitez is a 54-year-old female with continued complaints of left knee pain. She had a left total knee arthroplasty, done at the outside facility in December of 2018. She continued to have chronic pain and stiffness with significant patellofemoral crepitus, and elected to proceed with surgery. HOSPITAL COURSE: Ms. Benitez was admitted electively to the hospital on and underwent a revision of left total knee arthroplasty, patellar resurfacing with wide scar excision. She tolerated the procedure well without complications. Postoperatively, she was placed on Eliquis for DVT prophylaxis. On postoperative day #1, her H and H was 11 and 32, her vital signs were stable, she was ambulating well with physical therapy, and her pain was well controlled. She was discharged home in stable condition. DISCHARGE MEDICATIONS: 1. Percocet 5/325 one to two tabs every 4 to 6 hours as needed for pain. 2. Eliquis 2.5 mg 1 tab twice a day for 4 weeks. 3. Colace 100 mg tabs 2 to 3 daily as needed for constipation. PHYSICAL EXAMINATION: Upon discharge, her vital signs were stable. She was afebrile. Her wound was clean and dry. She was ambulating well with therapy. She was able to dorsiflex and plantar flex. She has a 2+ dorsalis pedis pulse and intact sensation. DISCHARGE INSTRUCTIONS: She was discharged home. She was given prescription for Eliquis to take twice a day for 4 weeks for DVT prophylaxis, Percocet for pain, and Colace for constipation. She is weightbearing as tolerated. Her dressing was changed prior to discharge and she will keep the new dressing on until Sunday, at that time, she can remove that dressing and shower. No bath. She can let soap and water run over the incision, pat it dry, and she will see Dr. Tompkins back in clinic in 2 weeks. SURAJ DELGADO [id number]/[facility] #: [id number] [facility]ITALKourtney
[2019-09-27] MEDS ORDERED: Vitamin THERAPEUTIC TAB PO SCH (09:00)
[2019-09-27] MEDS ORDERED: Apixaban* 2.5 MG TAB PO SCH (09:00)
[2019-09-27 11:32] VITALS: BP 117/57
[2019-09-27] MEDS ORDERED: Prochlorperazine TAB* 10 MG ONE (14:36)
[2019-09-28] MEDS ORDERED: Bisacodyl SUPP* 10 MG SUPP PR PRN (17:01)
[2019-09-29] MEDS ORDERED: Scopolamine PATCH Remove* 1 NOTE MISC PATCH OFF ONE (13:00)
== END 2019-09-27 15:30 | disposition home or self-care (01) | DRG 313 ==
LOC: AA 12:57 → SSU 17:01
PROVIDERS: ADMIT Orthopaedic Surgery Adult Reconstructive Orthopaedic Surgery; ATTEND Orthopaedic Surgery Adult Reconstructive Orthopaedic Surgery
PROC: 0SUD09C Supplement Left Knee Joint with Liner, Patellar Surface, Open Approach (ICD-10-PCS; 2019-09-26)
PROC: 0SBD0ZZ Excision of Left Knee Joint, Open Approach (ICD-10-PCS; 2019-09-26)
PROC: 0SPD09Z Removal of Liner from Left Knee Joint, Open Approach (ICD-10-PCS; principal; 2019-09-26 15:30)
DX: M23.8X2 Other internal derangements of left knee (principal); M17.12 Unilateral primary osteoarthritis, left knee; M25.562 Pain in left knee; Z96.652 Presence of left artificial knee joint; Z82.49 Family history of ischemic heart disease and other diseases of the circulatory system; Z88.0 Allergy status to penicillin
CPT/HCPCS: 36415; 80048; 81025; 85014; 85018; 85049; 87070; 87073; 87102; 87205; 87640; 87641; A9270-GY; C1776; J1100; J1170; J1240; J1885; J2250; J2405; J2704; J2795; Q0164

== ENCOUNTER 2020-10-08 06:50 | Observation (INO) ==
[~2020-10-08 06:50] MED LIST changes: +Buffered Lidocaine 1% SYRIN 1 ml INTRADERM ONE; -Buffered Lidocaine 1% SYRIN* 1 ML/SYRINGE INTRADERM ONE; +Famotidine IV 10 MG/ML 2 ml VIAL (20 mg) IV ONE; -Famotidine IV* 10 MG/ML 2 ML (20 mg) IV ONE; +Lactated Ringers 1000 ml BAG 1,000 ML IV SCH; -Scopolamine 1.5 mg* PATCH TRANSDERM ONE; +Sodium Citrate/Citric Acid LIQ 15 ML UDC PO ONE; -Tranexamic Acid 1,000 MG in NS 0.9% 50 ML* (outpatient use) IV SCH
[2020-10-08] MEDS ORDERED: Ondansetron 4 mg VIAL 2 MG/ML 2 ml VIAL ONE (06:53)
[2020-10-08] MEDS ORDERED: Lidocaine 2% PF 5 ML VIAL ONE (06:53)
[2020-10-08] MEDS ORDERED: Propofol 10 MG/ML 20 ML BTL ONE ×4 (06:53→09:10)
[2020-10-08] MEDS ORDERED: fentaNYL 250 mcg/5 ml 50 MCG/ML 5 ml VIAL (250 MCG) ONE (06:58)
[2020-10-08] MEDS ORDERED: Midazolam 2 mg/2 ml VIAL 1 mg/ml 2 ml VIAL (2 mg) ONE (06:58)
[2020-10-08] MEDS ORDERED: Sevoflurane BOTTLE ONE (07:04)
[2020-10-08] MEDS ORDERED: Dexamethasone IV 4 MG/ML VIAL 1 ml VIAL ONE ×2 (07:07→07:33)
[2020-10-08] MEDS ORDERED: ROPIVACAINE 5 MG/ML 30 ML BTL (0.5%) ONE ×2 (07:08→07:32)
[2020-10-08] MEDS ORDERED: Sodium Citrate/Citric Acid LIQ 15 ML UDC ONE (07:09)
[2020-10-08] MEDS ORDERED: Clindamycin 900 MG/D5W BAG 900 MG/50 ML BAG IVPB ONE (07:09)
[2020-10-08] MEDS ORDERED: Famotidine IV 10 MG/ML 2 ml VIAL (20 mg) ONE (07:09)
[2020-10-08] MEDS ORDERED: Lidocaine 1% MPF 5 ML VIAL ONE (07:32)
[2020-10-08] MEDS ORDERED: Midazolam 5 mg/5 ml VIAL 1 mg/ml 5 ml VIAL (5 mg) ONE (07:33)
[2020-10-08] MEDS ORDERED: DiMENhydriNATE IV 50 mg/ml 1 ml VIAL ONE (08:16)
[2020-10-08] MEDS ORDERED: Ketamine HCL 50 mg/ml 10 ml VIAL (500 MG) ONE (08:38)
[2020-10-08] MEDS ORDERED: fentaNYL 100 mcg/2 ml 50 MCG/ML VIAL IV PRN (08:43)
[2020-10-08] MEDS ORDERED: Ondansetron 4 mg VIAL 2 MG/ML 2 ml VIAL IV PRN ×2 (08:43→09:08)
[2020-10-08] MEDS ORDERED: Acetaminophen IV 1 GM/100ML 1,000 MG/100 ML VIAL IVPB PRN (08:43)
[2020-10-08] MEDS ORDERED: HYDROmorphone 1 MG/1 ML SYRINGE IV PRN (08:43)
[2020-10-08] MEDS ORDERED: diPHENhydraMINE IV 50 MG/ML 1 ml VIAL (BENADRYL) IV PRN ×2 (08:43→09:08)
[2020-10-08] MEDS ORDERED: DiMENhydriNATE IV 50 mg/ml 1 ml VIAL IV PUSH PRN (08:43)
[2020-10-08] MEDS ORDERED: Naloxone 0.4 mg VIAL 0.4 mg/ml 1 ml VIAL IV PRN (08:43)
[2020-10-08] MEDS ORDERED: Phenylephrine 40 mcg/mL 10mL (400mcg) SYRINGE ONE (08:47)
[2020-10-08] MEDS ORDERED: oxyCODONE/Acetamin 5/325 mg TAB PO PRN (09:08)
[2020-10-08] MEDS ORDERED: Ondansetron ODT 4 mg TAB 4 MG TAB PO PRN (09:08)
[2020-10-08] MEDS ORDERED: diPHENhydraMINE 25 mg TAB PO PRN (09:08)
[2020-10-08] MEDS ORDERED: Morphine 2 MG/ML SYRINGE IV PRN (09:08)
[2020-10-08] MEDS ORDERED: Magnesium Hydroxide LIQ 30 ML UDC PO PRN (09:08)
[2020-10-08] MEDS ORDERED: Lactulose 30 ml UDC PO PRN (09:08)
[2020-10-08] MEDS ORDERED: Acetaminophen IV 1 GM/100ML 100 ML ONE (10:30)
[2020-10-08] MEDS: Lactated Ringers 1000 ml BAG 1,000 ML IV SCH (11:23)
[2020-10-08] MEDS: Clindamycin 600 MG/D5W BAG 600 MG/50 ML BAG IV SCH (15:32)
[2020-10-08] MEDS: Magnesium Hydroxide LIQ 30 ML UDC PO SCH (22:59)
[2020-10-09] MEDS: Lactated Ringers 1000 ml BAG 1,000 ML IV SCH (00:10)
[2020-10-09] MEDS: Clindamycin 600 MG/D5W BAG 600 MG/50 ML BAG IV SCH ×2 (00:11→08:13)
[2020-10-09 06:20] LABS: Hematocrit 31 % (35-47); Hemoglobin 10.3 g/dL (12.0-16.0); Mean Platelet Volume 7.1 fL (7.4-10.4); Platelet Count 275 10^3/uL (150-450)
[2020-10-09 06:37] LABS: BUN/Creatinine Ratio 17.3 (8-20); Calcium 8.7 mg/dL (8.6-10.3); EGFR African American 147.6 (>60); Potassium 3.7 mmol/L (3.5-5.0)
[2020-10-09] MEDS: Magnesium Hydroxide LIQ 30 ML UDC PO SCH (08:10)
[2020-10-09 08:28] VITALS: BP 106/64
[2020-10-09] MEDS ORDERED: Vitamin THERAPEUTIC TAB PO SCH (09:00)
== END 2020-10-09 11:13 | disposition home or self-care (01) ==
LOC: AA 06:50 → INTOOBSV 06:50 → SSU 11:18
PROVIDERS: ADMIT Orthopaedic Surgery Adult Reconstructive Orthopaedic Surgery; ATTEND Orthopaedic Surgery Adult Reconstructive Orthopaedic Surgery